=== PATIENT | male | born 1975 | race African-American/Black ===

== ENCOUNTER 2016-11-28 14:41 | Emergency (ER) | payer SELFPAY ==
[2016-11-28] MEDS ORDERED: IPRATROPIUM/ALBUTEROL 0.5-2.5 MG/3 ML AMPUL NEB ONE (14:44)
[2016-11-28] MEDS ORDERED: PREDNISONE 20 MG TABLET PO ONE (14:44)
--- NOTE | 2016-11-28 14:46 | ER Document Report ---
ED Medical Screen (RME) - General Stated Complaint: DIFFICULTY BREATHING Mode of Arrival: Ambulatory Information source: Patient Notes: Patient presents to the emergency department with reports of history of asthma. Cannot find his inhaler. Patient is wheezing. Denies f/v/d. Reports no hx of intubation, never been admitted for asthma. Speaks in clear voice, no SOB. I have greeted and performed a rapid initial assessment of this patient. A comprehensive ED assessment and evaluation of the patient, analysis of test results and completion of the medical decision making process will be conducted by additional ED providers.
[2016-11-28 14:47] VITALS: BP 112/64
== END 2016-11-28 17:55 | disposition left against medical advice (07) ==
LOC: ER 14:41
DX: R06.00 Dyspnea, unspecified (principal)
CPT/HCPCS: 94640; 99281; J7512; J7620

== ENCOUNTER 2018-12-26 20:33 | Emergency (ER) | payer SELFPAY ==
[2018-12-26] MEDS ORDERED: PREDNISONE 20 MG TABLET PO ONE (20:58)
[2018-12-26] MEDS ORDERED: IPRATROPIUM/ALBUTEROL 0.5-2.5 MG/3 ML AMPUL NEB ONE ×3 (20:58→21:04)
--- NOTE | 2018-12-26 21:14 | ER Document Report ---
ED Respiratory Problem - General Chief Complaint: Shortness Of Breath Stated Complaint: TROUBLE BREATHING Time Seen by Provider: 12/26/18 20:59 TRAVEL OUTSIDE OF THE [place] IN LAST 30 DAYS: No - HPI Notes: Patient is a 43-year-old -[place] male with a history of asthma who presents to the emergency department with an acute onset of shortness of breath started around 4 PM this afternoon while he was mowing grass. States that while on the tractor a large amount of dust flew into his face which exacerbated his asthma. Patient only has albuterol inhaler at home but since he was at work he was unable to use it. Denies recent cough, cold, fever. Denies chest pain or shortness of breath. - Related Data Allergies/Adverse Reactions: Penicillins Allergy (Verified 11/28/16 14:46) Past Medical History - General Information source: Patient - Social History Smoking Status: Current Every Day Smoker Cigarette use (# per day): Yes - 3-4 Chew tobacco use (# tins/day): No Smoking Education Provided: Yes Family History: None Renal/ Medical History: Denies: Hx Peritoneal Dialysis Review of Systems - Review of Systems Constitutional: See HPI EENT: No symptoms reported Cardiovascular: No symptoms reported Respiratory: See HPI Gastrointestinal: No symptoms reported Genitourinary: No symptoms reported Male Genitourinary: No symptoms reported Musculoskeletal: No symptoms reported Skin: No symptoms reported Hematologic/Lymphatic: No symptoms reported Neurological/Psychological: No symptoms reported Physical Exam - Vital signs Vitals: Temp Pulse Resp BP Pulse Ox 98.1 F 90 18 131/91 H 92 12/26/18 20:51 12/26/18 20:51 12/26/18 20:51 12/26/18 20:51 12/26/18 20:51 - Notes Notes: GENERAL: Nontoxic, mildy distressed HEAD: Atraumatic, normocephalic. EYES: Pupils equal round and reactive to light, extraocular movements intact, sclera anicteric, conjunctiva are normal. NECK: Normal range of motion, supple without lymphadenopathy or JVD. LUNGS: Bilateral breath sounds diminished throughout with scattered expiratory wheezing. Mildy tachypneic. HEART: Regular rate and rhythm without murmurs, rubs or gallops. ABDOMEN: Soft, nontender, normoactive bowel sounds. No guarding, no rebound. No masses appreciated. EXTREMITIES: Normal range of motion, no pitting or edema. No clubbing or cyanosis. NEUROLOGICAL: Cranial nerves II through XII grossly intact. Normal speech, normal gait. PSYCH: Normal mood, normal affect. SKIN: Warm, Dry, normal turgor, no rashes or lesions noted. Course - Re-evaluation Re-evalutation: 12/26/18 21:11 Upon initial assessment patient sitting on the bedside with complaint of shortness of breath and wheezing. Patient currently 94-95% on room air. Lung sounds tight and diminished with scattered expiratory wheezing noted. Nursing staff at bedside administering DuoNeb and treatment. 12/26/18 22:08 Upon reassessment patient resting comfortably on stretcher, continues to receive duo nebs. Patient reports feeling much better. Lung sounds more open with minimal expiratory scattered wheezes throughout. We will continue to monitor. Oxygen level 97% on DuoNeb. 12/26/18 22:19 Patient is currently 96-97% on room air. Patient at this time refusing the venous blood gas and states he is feeling much better and would like to go home. 12/27/18 At time of discharge patient oxygen 97% on room air. Patient able to speak in clear complete sentences. His treatment plan to include prednisone for 5 days, and patient to be provided with a albuterol inhaler with a spacer. Educated patient is on avoiding environmental irritants and since he does work outside to wear a mask at all times. Patient to follow-up if worsening of symptoms to include shortness of breath, wheezing chest pain or return of asthma symptoms. Lung sounds clear bilaterally, no wheezing. - Vital Signs Vital signs: Temp Pulse Resp BP Pulse Ox 98.1 F 90 23 H 162/91 H 98 12/26/18 20:51 12/26/18 20:51 12/26/18 22:16 12/26/18 22:16 12/26/18 22:16 - Laboratory Result Diagrams: 12/26/18 21:50 12/26/18 21:50 Laboratory results interpreted by me: 12/26/18 21:50 RBC 4.24 L Hgb 12.3 L Hct 36.8 L RDW 17.2 H Eosinophils % 10.6 H Absolute Eosinophils 0.8 H - Diagnostic Test Radiology reviewed: Reports reviewed Radiology results interpreted by me: 12/27/18 X-ray read as normal, no obvious pneumonia. Discharge - Discharge Clinical Impression: Wheezing Asthma Qualifiers: Asthma severity: unspecified severity Asthma persistence: unspecified Asthma complication type: unspecified Qualified Code(s): J45.909 - Unspecified asthma, uncomplicated Condition: Stable Disposition: HOME, SELF-CARE Additional Instructions: Today you have been diagnosed with an asthma exacerbation that was probably induced by environmental exposure as you were cutting grass when this occurred. You will be given a albuterol inhaler to use at home at discharge and a spacer. Please use the spacer as discussed at discharge by her nurse. Also being prescribed prednisone which is a steroid. You have received your first dose in the emergency room tonight so start the prescription tomorrow. Please return to the emergency department for worsening of symptoms to include shortness of breath, wheezing, chest pain, or any other concerning signs or symptoms. These follow-up with your primary care physician. If possible please avoid environmental irritants, wear a mask when outside working in the yard or mowing grass. Asthma You have been diagnosed as having asthma. This is a condition where there is episodic tightness in the bronchial tubes. Allergies, infections, and polluted or cold air may be contributing factors. Emergency treatment of a severe asthma attack may include adrenaline shots, or bronchodilator aerosol. You may feel lightheaded, have a decreased exercise tolerance and a rapid pulse for an hour or two. Rest and get plenty of fluids. Home treatment of asthma requires bronchodilator drugs. These can be administered by injection, inhalation, or by mouth. Antibiotics and corticosteroids may be required for some patients. You should avoid chemical fumes, dusts, pollens, and exercising in very cold or dry air. If you smoke, stop!! If you develop a fever, increased wheezing, chest pain, or severe shortness of breath, you should contact the doctor immediately Prescriptions: Prednisone [Deltasone 20 mg Tablet] 60 mg PO DAILY 5 Days #15 tablet
[2018-12-26 22:07] LABS: ABSOLUTE BASOPHILS # (AUTO) 0.1 10^3/uL (0.0-0.2); ABSOLUTE EOSINOPHILS # (AUTO) 0.8 10^3/uL (0.0-0.6); ABSOLUTE LYMPHOCYTES (AUTO) 1.7 10^3/uL (0.5-4.7); ABSOLUTE MONOCYTES (AUTO) 0.7 10^3/uL (0.1-1.4); ABSOLUTE NEUT (AUTO) 4.3 10^3/uL (1.7-8.2); BASOPHILS % (AUTO) 0.9 % (0-2); EOSINOPHILS % (AUTO) 10.6 % (0-6); HEMATOCRIT 36.8 % (37.9-51.0); HEMOGLOBIN 12.3 g/dL (13.5-17.0); LYMPHOCYTES % (AUTO) 22.7 % (13-45); MEAN CORPUSCULAR HEMOGLOBIN 29.1 pg (27.0-33.4); MEAN CORPUSCULAR HGB CONC 33.5 g/dL (32.0-36.0); MEAN CORPUSCULAR VOLUME 87 fl (80-97); MONOCYTES % (AUTO) 8.9 % (3-13); PLATELET COUNT 227 10^3/uL (150-450); RED BLOOD COUNT 4.24 10^6/uL (4.35-5.55); RED CELL DISTRIBUTION WIDTH 17.2 % (11.5-14.0); SEGMENTED NEUTROPHILS % (AUTO) 56.9 % (42-78); TOTAL CELLS COUNTED % (AUTO) 100 %; WHITE BLOOD COUNT 7.6 10^3/uL (4.0-10.5)
--- NOTE | 2018-12-26 22:11 | RADIOLOGY REPORT (SQ) ---
XR CHEST 1 VIEW HISTORY: Dyspnea. COMPARISON: None. FINDINGS: The heart size is normal. No consolidation, pleural effusion, or pneumothorax is seen. There are no acute bony findings. IMPRESSION: No evidence of acute cardiopulmonary disease.
[2018-12-26] MEDS ORDERED: ALBUTEROL SULFATE HFA (90 MCG/PUFF) 8 GM MDI (1 MDI/ER DISP) IH ONE (22:22)
[2018-12-26 22:31] VITALS: BP 162/91
[2018-12-26 22:32] LABS: ANION GAP 5 (5-19); BLOOD UREA NITROGEN 14 mg/dL (7-20); CALCIUM 8.9 mg/dL (8.4-10.2); CARBON DIOXIDE 29 mmol/L (22-30); CHLORIDE 105 mmol/L (98-107); GLUCOSE 88 mg/dL (75-110); POTASSIUM 4.3 mmol/L (3.6-5.0); SODIUM 139.2 mmol/L (137-145)
[2018-12-26] MEDS: ALBUTEROL SULFATE 0.083% NEB 2.5 MG/3 ML AMPUL NEB SCH (22:51)
== END 2018-12-26 22:52 | disposition home or self-care (01) ==
LOC: ER 20:33
DX: J45.909 Unspecified asthma, uncomplicated (principal); R06.02 Shortness of breath; F17.210 Nicotine dependence, cigarettes, uncomplicated; Z88.0 Allergy status to penicillin
CPT/HCPCS: 94640 ×2; 99285; 36415; 85025; 80048; 71045; J7512; J3490; J7620

== ENCOUNTER 2019-01-04 13:58 | Emergency (ER) | payer OTHER ==
--- NOTE | 2019-01-04 16:24 | RADIOLOGY REPORT (SQ) ---
EXAM DESCRIPTION: SHOULDER LEFT 2 OR MORE VIEWS COMPLETED DATE/TIME: 01/04/2019 3:52 pm REASON FOR STUDY: fall injury COMPARISON: None. NUMBER OF VIEWS: Three views. TECHNIQUE: Internal rotation, external rotation, and Y view images acquired of the left shoulder. LIMITATIONS: None. FINDINGS: MINERALIZATION: Normal. BONES: No acute fracture or dislocation. No worrisome bone lesions. Old healed left mid 3rd clavicl e fracture. Old left humeral diaphysis fracture JOINTS: No glenohumeral dislocation. Acromioclavicular joint is intact VISUALIZED LUNGS AND RIBS: No pneumothorax. No rib fracture. SOFT TISSUES: No radiopaque foreign body. OTHER: No other significant finding. IMPRESSION: No acute findings. Old healed left mid 3rd clavicle fracture. Old left humeral diaphys is fracture. TECHNICAL DOCUMENTATION: JOB ID: [id number] [employer]- All Rights Reserved Reading location - IP/workstation name: [email or web address]
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
[2019-01-04 17:13] VITALS: BP 126/89
== END 2019-01-04 17:11 | disposition home or self-care (01) ==
LOC: ER 13:58
DX: M25.512 Pain in left shoulder (principal); W19.XXXA Unspecified fall, initial encounter; F17.200 Nicotine dependence, unspecified, uncomplicated; J45.909 Unspecified asthma, uncomplicated
CPT/HCPCS: 99283